=== PATIENT | male | born 1980 | race Caucasian/White ===

== ENCOUNTER 2017-07-16 00:25 | Emergency (ER) | payer BC ==
[2017-07-16] MEDS ORDERED: Sodium Chloride 0.9% 1,000 ML IV ONE (00:39)
[2017-07-16] MEDS ORDERED: Ondansetron 4 MG/2 ML SDV IVPUSH ONE (00:40)
[2017-07-16] MEDS ORDERED: Pantoprazole 80 MG in Sodium Chloride 0.9% 10 ML IVPUSH ONE (00:40)
--- NOTE | 2017-07-16 00:46 | EDM.PDOC ---
ED HPI GENERAL MEDICAL PROBLEM - General Chief Complaint: Abdominal Pain Stated Complaint: GAS PAINS Time Seen by Provider: 07/16/17 00:44 - History of Present Illness INITIAL COMMENTS - FREE TEXT/NARRATIVE: HISTORY AND PHYSICAL: History of present illness: Patient 36-year-old white male with history of gastric sleeve surgery was been doing well he does suffer from history of what sounds like gastroesophageal reflux disease who was at dinner tonight with his and developed indigestion that was more persistent than usual he vomited a small amount he denies any fever chills or other concern Review of systems: As per history of present illness and below otherwise all systems reviewed and negative. Past medical history: As per history of present illness and as reviewed below otherwise noncontributory. Surgical history: As per history of present illness and as reviewed below otherwise noncontributory. Social history: No reported history of drug or alcohol abuse. Family history: As per history of present illness and as reviewed below otherwise noncontributory. Physical exam: HEENT: Atraumatic, normocephalic, pupils reactive, negative for conjunctival pallor or scleral icterus, mucous membranes moist, throat clear, neck supple, nontender, trachea midline. Lungs: Clear to auscultation, breath sounds equal bilaterally, chest nontender. Heart: S1S2, regular, negative for clicks, rubs, or JVD. Abdomen: Soft, nondistended, no localized tenderness. Negative for masses or hepatosplenomegaly. Negative for costovertebral tenderness. Pelvis: Stable nontender. Genitourinary: Deferred. Rectal: Deferred. Extremities: Atraumatic, negative for cords or calf pain. Neurovascular unremarkable. Neuro: Awake, alert, oriented. Cranial nerves II through XII unremarkable. Cerebellum unremarkable. Motor and sensory unremarkable throughout. Exam nonfocal. Diagnostics: CBC CMP amylase lipase CT abdomen and pelvis Therapeutics: Normal saline 1 L bolus Zofran 4 mg IV Impression: #1 abdominal pain #2 history of gastric sleeve surgery Definitive disposition and diagnosis as appropriate pending reevaluation and review of above. Middle Abdominal Pain Score (Numeric/FACES): 7 - Related Data Allergies Allergy/AdvReac Type Severity Reaction Status Date / Time No Known Allergies Allergy Verified 07/16/17 00:32 Home Meds: Home Meds Calcium Carbonate [Calcium] 07/16/17 [History] Cholecalciferol (Vitamin D3) [Vitamin D] 07/16/17 [History] Cyanocobalamin (Vitamin B12) [Vitamin B12] 07/16/17 [History] Lisinopril 2 mg PO DAILY 07/16/17 [History] Pantoprazole [ProTONIX] 40 mg PO DAILY 07/16/17 [History] Past Medical History HEENT History: Reports: None Cardiovascular History: Reports: Hypertension Respiratory History: Reports: None Genitourinary History: Reports: None Musculoskeletal History: Reports: None Neurological History: Reports: None Psychiatric History: Reports: None Endocrine/Metabolic History: Reports: None Dermatologic History: Reports: None - Infectious Disease History Infectious Disease History: Reports: Chicken Pox - Past Surgical History HEENT Surgical History: Reports: None GI Surgical History: Reports: Hernia, Abdominal, Hernia Repair/Other, Other ( See Below) Other GI Surgeries/Procedures: gastric sleeve Male Surgical History: Reports: None Musculoskeletal Surgical History: Reports: None Social & Family History - Tobacco Use Smoking Status *Q: Never Smoker Second Hand Smoke Exposure: No ED ROS GENERAL - Review of Systems Review Of Systems: ROS reveals no pertinent complaints other than HPI. ED EXAM, GENERAL - Physical Exam Exam: See Below (dictated) Course - Vital Signs Last Recorded V/S: Last Vital Signs Temp 36.7 C 07/16/17 02:46 Pulse 82 07/16/17 02:46 Resp 18 07/16/17 02:46 BP 115/66 07/16/17 02:46 Pulse Ox 94 L 07/16/17 02:46 - Orders/Labs/Meds Labs: Laboratory Tests 07/16/17 07/16/17 Range/Units 00:45 00:45 WBC 15.45 H (4.0-11.0) K/uL RBC 5.12 (4.50-5.90) M/uL Hgb 14.6 (13.0-17.0) g/dL Hct 44.0 (38.0-50.0) % MCV 85.9 (80.0-98.0) fL MCH 28.5 (27.0-32.0) pg MCHC 33.2 (31.0-37.0) g/dL RDW Std Deviation 40.2 (28.0-62.0) fl RDW Coeff of Pamella 13 (11.0-15.0) % Plt Count 235 (150-400) K/uL MPV 10.20 (7.40-12.00) fL Neut % (Auto) 88.3 H (48.0-80.0) % Lymph % (Auto) 6.0 L (16.0-40.0) % Hawkins % (Auto) 5.2 (0.0-15.0) % Eos % (Auto) 0.3 (0.0-7.0) % Baso % (Auto) 0.2 (0.0-1.5) % Neut # (Auto) 13.7 H (1.4-5.7) K/uL Lymph # (Auto) 0.9 (0.6-2.4) K/uL Hawkins # (Auto) 0.8 (0.0-0.8) K/uL Eos # (Auto) 0.0 (0.0-0.7) K/uL Baso # (Auto) 0.0 (0.0-0.1) K/uL Sodium 140 (136-146) mmol/L Potassium 3.8 (3.5-5.1) mmol/L Chloride 103 (98-110) mmol/L Carbon Dioxide 22 (21-31) mmol/L BUN 18 (6.0-23.0) mg/dL Creatinine 1.1 (0.6-1.5) mg/dL Est Cr Clr Drug Dosing 110.02 mL/min Estimated GFR (MDRD) > 60.0 ml/min Glucose 172 H (60-110) mg/dL Calcium 9.3 (8.8-10.8) mg/dL Total Bilirubin 1.8 H (0.1-1.5) mg/dL AST 99 H (5-40) IU/L ALT 78 H (8-54) IU/L Alkaline Phosphatase 117 (40-150) Total Protein 7.7 (6.0-8.0) g/dL Albumin 4.0 (3.5-5.0) g/dL Globulin 3.7 H (2.0-3.5) g/dL Albumin/Globulin Ratio 1.1 L (1.3-2.8) Amylase 28 (10-90) U/L Lipase 13 (7-80) U/L Meds: Medications Discontinued Medications Generic Name Dose Route Start Last Admin Trade Name Polly PRN Reason Stop Dose Admin Sodium Chloride 1,000 mls @ 999 mls/hr 07/16/17 00:39 07/16/17 01:35 Normal Saline IV 07/16/17 01:39 999 mls/hr .Bolus ONE Administration Pantoprazole Sodium 80 mg/ 10 mls @ 300 mls/hr 07/16/17 00:40 07/16/17 01:45 Sodium Chloride IVPUSH 07/16/17 00:41 300 mls/hr NOW ONE Administration Ondansetron HCl 4 mg 07/16/17 00:40 07/16/17 01:35 Zofran IVPUSH 07/16/17 00:41 4 mg ONETIME ONE Administration Departure - Departure Time of Disposition: 01:30 Disposition: Home, Self-Care 01 Clinical Impression: Abdominal pain - Discharge Information Instructions: Abdominal Pain, Adult Referrals: Yash Puentes MD [Primary Care Provider] - Forms: ED Department Discharge Care Plan Goals: Followup in Primary Care in next 48-72hours.
[2017-07-16 01:19] LABS: CHLORIDE,CL 103 mmol/L (98-110); SODIUM,NA 140 mmol/L (136-146)
--- NOTE | 2017-07-16 10:50 | CT ---
EXAM DATE: 07/16/17 PATIENT'S AGE: 36 Patient: YAIMA NAGEL Facility: [place], [place] Site . Site : 1980 Study: CT Abdomen/Pelvis [id number] 1:41:07 AM Ordering Physician: Doctor Barron Final Report: INDICATION: 36-year-old male. Right upper quadrant abdominal pain. History of gastric sleeve surgery January 2017. TECHNIQUE: CT abdomen and pelvis without contrast. COMPARISON: None. FINDINGS: Private Pilot CT images: Nonobstructive bowel gas pattern. Lower chest: Unremarkable. Liver: Unremarkable. Spleen: Unremarkable. Pancreas: Unremarkable. Gallbladder and bile ducts: Unremarkable. Adrenal glands: Unremarkable. Kidneys: Unremarkable. No kidney or ureteral stones and no hydronephrosis. GI tract: Postsurgical changes involving the stomach from prior gastric sleeve surgery. Duodenum crosses midline. No abnormal distension of small bowel. Large bowel are normal in caliber with no acute inflammatory changes. Terminal ileum and appendix unremarkable. Vascular structures: Limited evaluation without IV contrast. Abdominal aorta normal in caliber. Normal orientation of SMA and SMV. Lymph nodes: Unremarkable. Miscellaneous: Tiny fat containing umbilical hernia defect. No free fluid or free air. Pelvic Organs: Unremarkable. Bones: Unremarkable for age. IMPRESSION: 1. No acute abnormality in the abdomen or pelvis. Postsurgical changes from gastric sleeve surgery. No clear etiology identified for right upper quadrant abdominal pain. 2. Normal appendix. 3. No obstructing renal or ureteral calculi. Dictated by Abdulaziz Brownlee MD @ 07/16/2017 1:50:40 AM Dictated by: Abdulaziz Brownlee MD @ 07/16/2017 01:50:47 (Electronic Signature) Report Signed by Proxy. [facility]
== END 2017-07-16 02:46 | disposition home or self-care (01) ==
LOC: MW.ED 00:25
DX: R10.9 Unspecified abdominal pain (principal); I10 Essential (primary) hypertension; Z79.899 Other long term (current) drug therapy; Z98.84 Bariatric surgery status
CPT/HCPCS: 74176; 80053; 82150; 83690; 85025; 96361; 96374; 96375; 99284; C9113; J2405; J7040; 99283

== ENCOUNTER 2017-08-06 13:45 | Emergency (ER) | payer BC ==
[2017-08-06] MEDS ORDERED: Sodium Chloride 0.9% 1,000 ML IV ONE (14:07)
[2017-08-06] MEDS ORDERED: Dexamethasone 10 MG/ML SDV IVPUSH ONE (14:07)
[2017-08-06] MEDS ORDERED: Clindamycin Phosphate in D5W 900 MG in Premix Bag 1 BAG IV ONE ×2 (14:07)
[2017-08-06] MEDS ORDERED: Ondansetron 4 MG/2 ML SDV IVPUSH ONE (14:07)
[2017-08-06 14:39] LABS: CHLORIDE,CL 105 mmol/L (98-110); SODIUM,NA 138 mmol/L (136-146)
--- NOTE | 2017-08-06 14:41 | EDM.PDOC ---
ED HPI GENERAL MEDICAL PROBLEM - General Chief Complaint: ENT Problem Stated Complaint: SORE THROAT Time Seen by Provider: 08/06/17 13:47 Source of Information: Reports: Patient History Limitations: Reports: No Limitations - History of Present Illness INITIAL COMMENTS - FREE TEXT/NARRATIVE: HISTORY AND PHYSICAL: History of present illness: Patient is a 36-year-old male who presents to the emergency room today with complaints of throat pain 3 days. Patient reports that he has had a sore throat with pain of swallowing, subjective fevers, and left ear pain. States that he does have intermittent nausea and vomiting. Denies any difficulty breathing. Denies any abdominal pain, chest pain, shortness of breath, headache. Review of systems: As per history of present illness and below otherwise all systems reviewed and negative. Past medical history: As per history of present illness and as reviewed below otherwise noncontributory. Surgical history: As per history of present illness and as reviewed below otherwise noncontributory. Social history: No reported history of drug or alcohol abuse. Family history: As per history of present illness and as reviewed below otherwise noncontributory. Physical exam: HEENT: Atraumatic, normocephalic, pupils reactive, negative for conjunctival pallor or scleral icterus, mucous membranes moist. Erythema and swelling of the onset was with exudate, grade 3 -unable to appreciate if there is any shifting due to the amount of swelling. Erythema of the posterior oropharynx. No lymphadenopathy. His is neck supple, nontender, trachea midline. Patient does have a muffled voice when speaking. No trismus noted. Lungs: Clear to auscultation, breath sounds equal bilaterally, chest nontender. Breathing is easy and even Heart: S1S2, regular rate and rhythm Abdomen: Soft, nondistended, nontender. Negative for masses or hepatosplenomegaly. Negative for costovertebral tenderness. Pelvis: Stable nontender. Genitourinary: Deferred. Rectal: Deferred. Extremities: Atraumatic, moves all extremities per self, negative for cords or calf pain. Neurovascular unremarkable. Skin: Cheeks appear flushed bilaterally, skin is warm to touch. No rashes, lesions, or masses noted. Neuro: Awake, alert, oriented. Cranial nerves II through XII unremarkable. Cerebellum unremarkable. Motor and sensory unremarkable throughout. Exam nonfocal. Due to the extensive swelling of the tonsils I would get a CT scan of the soft tissue neck. To rule out peritonsillar abscess. Patient voices understanding and is agreeable to plan of care. 1600- Patient reports he is feeling better, with less pain and difficulty swallowing. Temperature has gone down to 99.0 from 102F 1615- CT shows a 1.60.9 cm left peritonsillar abscess, moderate enlargement of the palatine tonsils bilaterally, and minimal narrowing of the airway. Dr. Walsh that ENT in [facility] was consult at on this case. He states that the patients may come to their facility for an I&D. If the patient is feeling better he states that the patient may try clindamycin and Medrol Dosepak as outpatient and follow-up within 24 hours for reevaluation. The patient was informed of these results and the conversation was had with Dr. Walsh. At this time he is deciding whether or not he would like to be transferred or trial of outpatient therapy. 1630- Patient spoke with several family members on the phone. Myself and the ER physician discussed risks versus benefits of transfer. I strongly encouraged that he transferred to [place] in which he declined. He states that he will take his antibiotic and monitor his symptoms. He will return in 24 hours for reevaluation. He states if he feels worse or new symptoms arise he will return to the ER sooner. Diagnostics: CBC, CMP, soft tissue neck Therapeutics: IV fluid, Zofran, clindamycin IV Impression: Peritonsillar abscess Plan: 1. Transferred to [place] was declined at this time. If your symptoms become worse or new symptoms develop please return to the emergency room as soon as possible. At that time we would need to transfer you to ENT in [place]. 2. Take your clindamycin as prescribed. Clindamycin 300 mg 1 tab every 6 hours 10 days. 3. Tylenol with codeine elixir has been prescribed. 10 mL every 6 hours as needed for pain. Zofran as needed for nausea. A Medrol Dosepak has been prescribed for the swelling. Take this medication as directed. 4. Please return to the emergency room in [address] Rand will see you tomorrow before 7 PM. Turn to the ED as needed and as discussed Definitive disposition and diagnosis as appropriate pending reevaluation and review of above. Duration: Day(s): Location: Reports: Neck Throat Pain Score (Numeric/FACES): 3 - Related Data Allergies Allergy/AdvReac Type Severity Reaction Status Date / Time No Known Allergies Allergy Verified 08/06/17 14:03 Home Meds: Home Meds Lisinopril 20 mg PO DAILY 07/16/17 [History] Pantoprazole [ProTONIX] 40 mg PO DAILY 07/16/17 [History] Past Medical History HEENT History: Reports: None Cardiovascular History: Reports: Hypertension Respiratory History: Reports: None Genitourinary History: Reports: None Musculoskeletal History: Reports: None Neurological History: Reports: None Psychiatric History: Reports: None Endocrine/Metabolic History: Reports: None Dermatologic History: Reports: None - Infectious Disease History Infectious Disease History: Reports: Chicken Pox - Past Surgical History HEENT Surgical History: Reports: None GI Surgical History: Reports: Hernia, Abdominal, Hernia Repair/Other, Other ( See Below) Other GI Surgeries/Procedures: gastric sleeve Male Surgical History: Reports: None Musculoskeletal Surgical History: Reports: None Social & Family History - Family History Family Medical History: Noncontributory - Tobacco Use Smoking Status *Q: Never Smoker Second Hand Smoke Exposure: No - Recreational Drug Use Recreational Drug Use: No ED ROS ENT - Review of Systems Review Of Systems: ROS reveals no pertinent complaints other than HPI. ED EXAM, ENT - Physical Exam Exam: See Below (See dictation) Course - Vital Signs Last Recorded V/S: Last Vital Signs Temp 37.7 C 08/06/17 15:35 Pulse 97 08/06/17 15:35 Resp 18 08/06/17 15:35 BP 136/91 H 08/06/17 14:51 Pulse Ox 94 L 08/06/17 15:35 - Orders/Labs/Meds Labs: Laboratory Tests 08/06/17 08/06/17 Range/Units 14:16 14:16 WBC 25.26 H (4.0-11.0) K/uL RBC 4.83 (4.50-5.90) M/uL Hgb 14.1 (13.0-17.0) g/dL Hct 41.4 (38.0-50.0) % MCV 85.7 (80.0-98.0) fL MCH 29.2 (27.0-32.0) pg MCHC 34.1 (31.0-37.0) g/dL RDW Std Deviation 42.6 (28.0-62.0) fl RDW Coeff of Pamella 14 (11.0-15.0) % Plt Count 216 (150-400) K/uL MPV 10.20 (7.40-12.00) fL Add Manual Diff YES Neutrophils % (Manual) 87 H (48.0-80.0) % Band Neutrophils % 4 % Lymphocytes % (Manual) 6 L (16.0-40.0) % Monocytes % (Manual) 3 (0.0-15.0) % Nucleated RBC % 0.0 /100WBC Absolute Seg Neuts 22.0 H (1.4-5.7) Band Neutrophils # 1.0 Lymphocytes # (Manual) 1.5 (0.6-2.4) Monocytes # (Manual) 0.8 (0.0-0.8) Nucleated RBCs # 0 K/uL Sodium 138 (136-146) mmol/L Potassium 3.3 L (3.5-5.1) mmol/L Chloride 105 (98-110) mmol/L Carbon Dioxide 24 (21-31) mmol/L BUN 9 (6.0-23.0) mg/dL Creatinine 1.0 (0.6-1.5) mg/dL Est Cr Clr Drug Dosing 124.40 mL/min Estimated GFR (MDRD) > 60.0 ml/min Glucose 132 H (60-110) mg/dL Calcium 8.7 L (8.8-10.8) mg/dL Total Bilirubin 1.1 (0.1-1.5) mg/dL AST 13 (5-40) IU/L ALT 32 (8-54) IU/L Alkaline Phosphatase 99 (40-150) Total Protein 7.1 (6.0-8.0) g/dL Albumin 3.6 (3.5-5.0) g/dL Globulin 3.5 (2.0-3.5) g/dL Albumin/Globulin Ratio 1.0 L (1.3-2.8) Meds: Medications Discontinued Medications Generic Name Dose Route Start Last Admin Trade Name Freq PRN Reason Stop Dose Admin Dexamethasone 10 mg 08/06/17 14:07 08/06/17 14:33 Dexamethasone IVPUSH 08/06/17 14:08 10 mg ONETIME ONE Administration Clindamycin Phosphate 900 mg/ 50 mls @ 100 mls/hr 08/06/17 14:07 08/06/17 14: 33 Premix IV 08/06/17 14:36 100 mls/hr ONETIME ONE Administration Sodium Chloride 1,000 mls @ 999 mls/hr 08/06/17 14:07 08/06/17 14:32 Normal Saline IV 08/06/17 15:07 999 mls/hr STAT ONE Administration Iopamidol 80 ml 08/06/17 14:53 08/06/17 14:53 Isovue Multipack-370 (76%) IVPUSH 08/06/17 14:54 80 ml ONETIME STA Administration Ketorolac Tromethamine 30 mg 08/06/17 14:42 08/06/17 15:13 Toradol IVPUSH 08/06/17 14:43 30 mg ONETIME ONE Administration Ondansetron HCl 4 mg 08/06/17 14:07 08/06/17 14:33 Zofran IVPUSH 08/06/17 14:08 4 mg ONETIME ONE Administration Departure - Departure Time of Disposition: 16:46 Disposition: Home, Self-Care 01 Clinical Impression: Peritonsillar abscess - Discharge Information Referrals: Yash Puentes MD [Primary Care Provider] - Forms: ED Department Discharge Additional Instructions: The following information is given to patients seen in the emergency department who are being discharged to home. This information is to outline your options for follow-up care. We provide all patients seen in our emergency department with a follow-up referral. The need for follow-up, as well as the timing and circumstances, are variable depending upon the specifics of your emergency department visit. If you don't have a primary care physician on staff, we will provide you with a referral. We always advise you to contact your personal physician following an emergency department visit to inform them of the circumstance of the visit and for follow-up with them and/or the need for any referrals to a consulting specialist. The emergency department will also refer you to a specialist when appropriate. This referral assures that you have the opportunity for follow-up care with a specialist. All of these measure are taken in an effort to provide you with optimal care, which includes your follow-up. Under all circumstances we always encourage you to contact your private physician who remains a resource for coordinating your care. When calling for follow-up care, please make the office aware that this follow-up is from your recent emergency room visit. If for any reason you are refused follow-up, please contact the [facility] at and asked to speak to the emergency department charge nurse. [facility] [address] [place] [id number] 1. Transferred to [place] was declined at this time. If your symptoms become worse or new symptoms develop please return to the emergency room as soon as possible. At that time we would need to transfer you to ENT in [place]. 2. Take your clindamycin as prescribed. Clindamycin 300 mg 1 tab every 6 hours 10 days. 3. Tylenol with codeine elixir has been prescribed. 10 mL every 6 hours as needed for pain. Zofran as needed for nausea. A Medrol Dosepak has been prescribed for the swelling. Take this medication as directed. 4. Please return to the emergency room in [address] Rand will see you tomorrow before 7 PM. Turn to the ED as needed and as discussed
[2017-08-06] MEDS ORDERED: Ketorolac 30 MG/ML SDV IVPUSH ONE (14:42)
[2017-08-06] MEDS ORDERED: Iopamidol 755 MG/ML 500 ML Multipack Bottle IVPUSH STA (14:53)
--- NOTE | 2017-08-06 15:28 | CT ---
EXAMINATION: CT soft tissue neck with contrast HISTORY: Enlarged tonsils COMPARISON: None TECHNIQUE: Axial CT images obtained through the neck following the administration of 80 mL of Isovue- 370 left anterior fossa. Coronal and sagittal reconstructions obtained. FINDINGS: There is moderate enlargement of the palatine tonsils bilaterally, left greater than right. Inferior to the left palatine tonsil there is a 1.6 x 0.9 cm hypoechoic collection with mass effect on the left aspect of the vallecula. There is minimal narrowing of the airway. The larynx and upper t rachea appear normal. There is mild prominence of the left thyroid lobe. Prominent however symmetric level 2 lymph nodes are noted bilaterally measuring up to 1.6 cm in the short axis. Most likely react marie. Paranasal sinuses are clear. The mastoid air cells and middle ears are clear. The orbits and josué bes appear symmetric. The lung apices are clear. There is a tiny cysts subpleural nodule within the r ight upper lobe bilaterally, likely benign given the patient's age. No suspicious osseous abnormaliti es. IMPRESSION: 1. There is a 1.6 x 0.9 cm left peritonsillar abscess. 2. Moderate enlargement of the palatine tonsils bilaterally. 3. Moderate prominence of the upper cervical chain lymph nodes, likely reactive.
== END 2017-08-06 16:55 | disposition home or self-care (01) ==
LOC: MW.ED 13:45
DX: J36 Peritonsillar abscess (principal); I10 Essential (primary) hypertension; Z79.899 Other long term (current) drug therapy
CPT/HCPCS: 36415; 70491; 80053; 85025; 96361; 96365; 96375; 99284; J1100; J1885; J2405; J7040; Q9967

== ENCOUNTER 2019-03-01 03:01 | Emergency (ER) | payer BC, OTHER ==
[2019-03-01] MEDS ORDERED: Sodium Chloride 0.9% 10 ML Syringe FLUSH PRN (03:41)
[2019-03-01] MEDS ORDERED: Sodium Chloride 0.9% 2.5 ML Syringe FLUSH PRN (03:41)
[2019-03-01] MEDS ORDERED: Sodium Chloride 0.9% 1,000 ML IV ONE (03:41)
--- NOTE | 2019-03-01 03:46 | EDM.PDOC ---
ED HPI GENERAL MEDICAL PROBLEM - General Chief Complaint: Gastrointestinal Problem Stated Complaint: INDIGESTION Time Seen by Provider: 03/01/19 03:18 - History of Present Illness INITIAL COMMENTS - FREE TEXT/NARRATIVE: HISTORY AND PHYSICAL: History of present illness: The patient is a 38 y/o male with a history of a gastric sleeve surgery approximately 2 years ago in [place] who presents with complaints of chronic indigestion that he has had since his surgery but now a new symptom of epigastric and right upper quadrant pressure pain that has been on and off for the last 1 week. The patient says that this discomfort is different than his indigestion and it is more pressure-like sensation and it is better in the morning and worse as the day progresses and he eats food. He had a bowel movement 2 days ago and that is the typical for him and he has had no nausea vomiting or diarrhea no fevers or chills chest pain or shortness of breath. The patient's only abdominal surgical history is of a hernia repair. He has no specific history of food intolerance and he does take Protonix on a daily basis. He did take Gas-X before coming here as he felt that this might be gas related. The reason why he is in the emergency department this morning is because the discomfort woke him from sleep and he was concerned. There is no radiation of this discomfort to the lower abdomen no lower abdominal cramping or pain and no back or flank pain. When I talked to him about the pain and the discomfort he says it is not severe but it does concern him he doesn't need specifically pain medications for it but he wanted evaluation for it. Review of systems: As per history of present illness and below otherwise all systems reviewed and negative. Past medical history: As per history of present illness and as reviewed below otherwise noncontributory. Surgical history: As per history of present illness and as reviewed below otherwise noncontributory. Social history: No reported history of drug or alcohol abuse. Family history: As per history of present illness and as reviewed below otherwise noncontributory. Physical exam: General: Well-developed well-nourished man who is nontoxic and vital signs are noted by me HEENT: Atraumatic, normocephalic, , negative for conjunctival pallor or scleral icterus, mucous membranes moist, throat clear, neck supple, nontender, trachea midline. Lungs: Clear to auscultation, breath sounds equal bilaterally, chest nontender. Heart: S1S2, regular rate and rhythm no overt murmurs Abdomen: Soft, nondistended, bowel sounds are slightly hypoactive and there is tympany on percussion of the upper abdomen without tenderness. There is no tenderness on deep palpation of the right upper quadrant or epigastrium and no rebound or guarding. Negative for masses or hepatosplenomegaly. Pelvis: Stable nontender. Genitourinary: Deferred. Rectal: Deferred. Extremities: Atraumatic, range of motion without defects or deficits. Neurovascular unremarkable. Neuro: Awake, alert, oriented. Cranial nerves II through XII unremarkable. Cerebellum unremarkable. Motor and sensory unremarkable throughout. Exam nonfocal. Diagnostics: EKG CBC CMP amylase lipase H. pylori CT scan of the abdomen and pelvis Therapeutics: IV fluids Patient declined pain medication at this time Impression: Abdominal pain stable etiology unclear, history of chronic indigestion and gastric sleeve surgery Definitive disposition and diagnosis as appropriate pending reevaluation and review of above. abdominal Pain Score (Numeric/FACES): 6 - Related Data Allergies Allergy/AdvReac Type Severity Reaction Status Date / Time No Known Allergies Allergy Verified 03/01/19 03:20 Home Meds: Home Meds . [No Known Home Meds] 03/01/19 [History] Past Medical History HEENT History: Reports: None Cardiovascular History: Reports: Hypertension Respiratory History: Reports: None Genitourinary History: Reports: None Musculoskeletal History: Reports: None Neurological History: Reports: None Psychiatric History: Reports: None Endocrine/Metabolic History: Reports: None Dermatologic History: Reports: None - Infectious Disease History Infectious Disease History: Reports: Chicken Pox - Past Surgical History HEENT Surgical History: Reports: None GI Surgical History: Reports: Hernia, Abdominal, Hernia Repair/Other, Other ( See Below) Other GI Surgeries/Procedures: gastric sleeve Male Surgical History: Reports: None Musculoskeletal Surgical History: Reports: None Social & Family History - Family History Family Medical History: Noncontributory ED ROS GENERAL - Review of Systems Review Of Systems: ROS reveals no pertinent complaints other than HPI. ED EXAM, GENERAL - Physical Exam Exam: See Below (see Dictation) Course - Vital Signs Last Recorded V/S: Last Vital Signs Temp 36.1 C 03/01/19 03:16 Pulse 97 03/01/19 03:16 Resp 18 03/01/19 03:16 BP 154/93 H 03/01/19 03:16 Pulse Ox 97 03/01/19 03:16 - Orders/Labs/Meds Orders: Active Orders 24 hr Category Date Time Status EKG Documentation Completion [RC] STAT Care 03/01/19 03:04 Active Sodium Chloride 0.9% [Saline Flush] Med 03/01/19 03:41 Active 10 ml FLUSH ASDIRECTED PRN Sodium Chloride 0.9% [Saline Flush] Med 03/01/19 03:41 Active 2.5 ml FLUSH ASDIRECTED PRN Saline Lock Insert [OM.PC] Stat Oth 03/01/19 03:41 Ordered Medication Orders Sodium Chloride (Saline Flush) 10 ml FLUSH ASDIRECTED PRN PRN Reason: Keep Vein Open Last Admin: 03/01/19 03:49 Dose: 10 ml Sodium Chloride (Saline Flush) 2.5 ml FLUSH ASDIRECTED PRN PRN Reason: Keep Vein Open Last Admin: 03/01/19 03:49 Dose: 2.5 ml Labs: Laboratory Tests 03/01/19 03/01/19 03/01/19 Range/Units 03:45 03:45 03:45 WBC 7.92 (4.0-11.0) K/uL RBC 4.80 (4.50-5.90) M/uL Hgb 14.0 (13.0-17.0) g/dL Hct 41.5 (38.0-50.0) % MCV 86.5 (80.0-98.0) fL MCH 29.2 (27.0-32.0) pg MCHC 33.7 (31.0-37.0) g/dL RDW Std Deviation 40.2 (28.0-62.0) fl RDW Coeff of Pamella 13 (11.0-15.0) % Plt Count 236 (150-400) K/uL MPV 9.20 (7.40-12.00) fL Neut % (Auto) 66.5 (48.0-80.0) % Lymph % (Auto) 23.1 (16.0-40.0) % [place] % (Auto) 7.3 (0.0-15.0) % Eos % (Auto) 2.7 (0.0-7.0) % Baso % (Auto) 0.4 (0.0-1.5) % Neut # (Auto) 5.3 (1.4-5.7) K/uL Lymph # (Auto) 1.8 (0.6-2.4) K/uL [place] # (Auto) 0.6 (0.0-0.8) K/uL Eos # (Auto) 0.2 (0.0-0.7) K/uL Baso # (Auto) 0.0 (0.0-0.1) K/uL Nucleated RBC % 0.0 /100WBC Nucleated RBCs # 0 K/uL Sodium 138 (136-148) mmol/L Potassium 3.0 L (3.5-5.1) mmol/L Chloride 103 (98-107) mmol/L Carbon Dioxide 27.9 (21.0-32.0) mmol/L BUN 13 (7.0-18.0) mg/dL Creatinine 0.9 (0.8-1.3) mg/dL Est Cr Clr Drug Dosing 135.62 mL/min Estimated GFR (MDRD) > 60.0 ml/min Glucose 128 H (74-106) mg/dL Calcium 8.5 (8.5-10.1) mg/dL Total Bilirubin 0.7 (0.2-1.0) mg/dL AST 12 L (15-37) IU/L ALT 21 (14-63) IU/L Alkaline Phosphatase 68 (46-116) U/L Total Protein 7.0 (6.4-8.2) g/dL Albumin 3.5 (3.4-5.0) g/dL Globulin 3.5 (2.6-4.0) g/dL Albumin/Globulin Ratio 1.0 (0.9-1.6) Amylase 26 (25-115) U/L Lipase 64 L (73-393) U/L H. pylori IgG Antibody NEGATIVE (NEG) Meds: Medications Generic Name Dose Route Start Last Admin Trade Name Freq PRN Reason Stop Dose Admin Sodium Chloride 10 ml 03/01/19 03:41 03/01/19 03:49 Saline Flush FLUSH 10 ml ASDIRECTED PRN Administration Keep Vein Open Sodium Chloride 2.5 ml 03/01/19 03:41 03/01/19 03:49 Saline Flush FLUSH 2.5 ml ASDIRECTED PRN Administration Keep Vein Open Discontinued Medications Generic Name Dose Route Start Last Admin Trade Name Polly PRN Reason Stop Dose Admin Sodium Chloride 1,000 mls @ 999 mls/hr 03/01/19 03:41 03/01/19 03:49 Normal Saline IV 03/01/19 04:41 999 mls/hr STAT ONE Administration Iopamidol 100 ml 03/01/19 04:47 03/01/19 04:47 Isovue-370 (76%) IVPUSH 03/01/19 04:48 100 ml ONETIME ONE Administration Departure - Departure Time of Disposition: 05:34 Disposition: Home, Self-Care 01 Condition: Good Clinical Impression: Abdominal pain - Discharge Information Referrals: Yash Puentes MD [Primary Care Provider] - Forms: ED Department Discharge Additional Instructions: The following information is given to patients seen in the emergency department who are being discharged to home. This information is to outline your options for follow-up care. We provide all patients seen in our emergency department with a follow-up referral. The need for follow-up, as well as the timing and circumstances, are variable depending upon the specifics of your emergency department visit. If you don't have a primary care physician on staff, we will provide you with a referral. We always advise you to contact your personal physician following an emergency department visit to inform them of the circumstance of the visit and for follow-up with them and/or the need for any referrals to a consulting specialist. The emergency department will also refer you to a specialist when appropriate. This referral assures that you have the opportunity for followup care with a specialist. All of these measure are taken in an effort to provide you with optimal care, which includes your followup. Under all circumstances we always encourage you to contact your private physician who remains a resource for coordinating your care. When calling for followup care, please make the office aware that this follow-up is from your recent emergency room visit. If for any reason you are refused follow-up, please contact the [facility] emergency department at and ask to speak to the emergency department charge nurse. [facility] [address] [place], [place] [id number] Please connect with your provider in [place] or one of ours for further care and evaluation of this pain with possible upper endoscopy or further gallbladder workup. Push hydration and avoid caffeinated products and other gastric irritating foods. Eat more potassium rich foods such as banana and whole grain products. Use [id number] medications as you choose for discomfort and pain and return to ER as needed and as discussed - My Orders Last 24 Hours: My Active Orders 03/01/19 03:04 EKG Documentation Completion [RC] STAT 03/01/19 03:41 Sodium Chloride 0.9% [Saline Flush] 10 ml FLUSH ASDIRECTED PRN Sodium Chloride 0.9% [Saline Flush] 2.5 ml FLUSH ASDIRECTED PRN Saline Lock Insert [OM.PC] Stat - Assessment/Plan Last 24 Hours: My Active Orders 03/01/19 03:04 EKG Documentation Completion [RC] STAT 03/01/19 03:41 Sodium Chloride 0.9% [Saline Flush] 10 ml FLUSH ASDIRECTED PRN Sodium Chloride 0.9% [Saline Flush] 2.5 ml FLUSH ASDIRECTED PRN Saline Lock Insert [OM.PC] Stat
[2019-03-01 04:18] LABS: CHLORIDE,CL 103 mmol/L (98-107); SODIUM,NA 138 mmol/L (136-148)
[2019-03-01] MEDS ORDERED: Iopamidol 755 Mg/ML 100 ML Bottle IVPUSH ONE (04:47)
--- NOTE | 2019-03-01 05:33 | CT ---
INDICATION: Right upper quadrant pain for 5 days. TECHNIQUE: CT abdomen and pelvis acquired with 100 cc Isovue 370 intravenous contrast. COMPARISON: None. FINDINGS: Lower chest: Bibasilar discoid atelectasis. Trace bilateral pleural fluid. Liver: Unremarkable. Normal in size and attenuation. No masses. Gallbladder and bile ducts: Normal diameter common duct. No pericholecystic inflammation. Pancreas: Unremarkable. No mass or inflammation. Spleen: Unremarkable. Normal in size. No masses. Adrenal glands: Unremarkable. No nodules. Kidneys: Unremarkable. No masses, stones, or hydronephrosis. GI tract: Status post gastric surgery. No dilated loops of large or small intestine. Terminal ileum unremarkable. Appendix unremarkable. Vasculature: Unremarkable. Lymph nodes: No lymphadenopathy. Omentum/Peritoneum/Abdominal Wall: Unremarkable. No sign of mass or infiltration. No free air or significant free fluid. Pelvis: Unremarkable. Bones: Unremarkable for age. IMPRESSION: 1. No dilated bowel or focal inflammation. Normal appendix. 2. Trace bilateral pleural fluid. 3. Status post gastric surgery. Please note that all CT scans at this facility use dose modulation, iterative reconstruction, and/or weight-based dosing when appropriate to reduce radiation dose to as low as reasonably achievable. Dictated by Satish Diop MD @ Mar 01 2019 5:24AM Signed by Dr. Satish Diop @ Mar 01 2019 5:32AM
== END 2019-03-01 05:48 | disposition home or self-care (01) ==
LOC: MW.ED 03:01
DX: R10.11 Right upper quadrant pain (principal); R10.13 Epigastric pain; I10 Essential (primary) hypertension; Z98.84 Bariatric surgery status
CPT/HCPCS: 36415; 74177; 80053; 82150; 83690; 85025; 86677; 93005; 96360; 99284; J7040; Q9967; 99283